=== PATIENT | male | born 1940 | race Caucasian/White ===

== ENCOUNTER 2016-04-10 13:06 | Inpatient (IN) | payer BC ==
[~2016-04-10] VITALS: Ht 170.2 cm; Wt 82.0 kg
[2016-04-10] MEDS ORDERED: NALOXONE 0.4 MG/ML AMP ONE (14:41)
[2016-04-10] MEDS ORDERED: SODIUM CHLORIDE 0.9% 1,000 ML ONE (14:51)
[2016-04-10] MEDS ORDERED: NALOXONE 2 MG/2 ML SYRINGE ONE (15:46)
[2016-04-10] MEDS ORDERED: SODIUM CHLORIDE 0.9% 1,000 ML IV SCH (16:00)
[2016-04-10] MEDS ORDERED: SALINE FLUSH 10 ML FLUSH PRN (16:00)
[2016-04-10] MEDS ORDERED: ONDANSETRON 4 MG VIAL IV PRN (16:00)
[2016-04-10] MEDS: DUONEB INH SCH ×2 (17:25→23:29)
[2016-04-10 17:29] VITALS: RESP 20
[2016-04-10 18:46] VITALS: BP_SYST 124; BP_SYST 130; RESP 18; TEMP 98
[2016-04-10 18:49] VITALS: Ht 170.2 cm; Wt 82.0 kg
[2016-04-10] MEDS: SALINE FLUSH 10 ML FLUSH SCH (20:43)
[2016-04-10] MEDS: PRAVASTATIN 20 MG TAB PO SCH (21:00)
[2016-04-10] MEDS: ATENOLOL 25 MG TAB PO SCH (21:00)
[2016-04-10 23:36] VITALS: RESP 16
[2016-04-10 23:54] VITALS: BP_SYST 86; RESP 18; TEMP 98.6
[2016-04-11] MEDS: DUONEB INH SCH ×6 (02:24→22:33)
[2016-04-11 03:30] VITALS: BP_SYST 114; RESP 20; TEMP 98.3
[2016-04-11] MEDS: SODIUM CHLORIDE 0.9% FLUSH BAG 500 ML IV SCH (05:14)
[2016-04-11 08:16] VITALS: BP_SYST 132; RESP 18; TEMP 98.5
[2016-04-11] MEDS: SALINE FLUSH 10 ML FLUSH SCH ×2 (08:16→21:15)
[2016-04-11] MEDS: ATENOLOL 25 MG TAB PO SCH ×2 (08:17→21:16)
[2016-04-11] MEDS: Furosemide 20 MG TAB PO SCH (08:17)
[2016-04-11] MEDS: ASPIRIN EC 81 MG TAB PO SCH (08:17)
[2016-04-11] MEDS: ALLOPURINOL 100 MG TAB PO SCH (08:18)
[2016-04-11 15:50] VITALS: BP_SYST 117; RESP 16; TEMP 98.4
[2016-04-11 19:00] VITALS: BP_SYST 114; BP_SYST 128; RESP 19; TEMP 97.8; TEMP 98
[2016-04-11] MEDS: TAMSULOSIN 0.4 MG CAP PO SCH (21:16)
[2016-04-11] MEDS: PRAVASTATIN 20 MG TAB PO SCH (21:16)
[2016-04-11] MEDS: ACETAMINOPHEN 325 MG TAB PO PRN (21:16)
[2016-04-11 22:45] VITALS: RESP 23
[2016-04-11 23:00] VITALS: BP_SYST 98; RESP 18; TEMP 97.4
[2016-04-12 00:22] VITALS: RESP 19
[2016-04-12] MEDS: DUONEB INH SCH ×5 (02:43→18:03)
[2016-04-12 03:55] VITALS: BP_SYST 120; RESP 18; TEMP 97.5
[2016-04-12] MEDS: SODIUM CHLORIDE 0.9% FLUSH BAG 500 ML IV SCH (05:56)
[2016-04-12 07:13] VITALS: BP_SYST 107; RESP 16; TEMP 98.2
[2016-04-12] MEDS: ATENOLOL 25 MG TAB PO SCH ×2 (10:01→21:10)
[2016-04-12] MEDS: Furosemide 20 MG TAB PO SCH (10:01)
[2016-04-12] MEDS: SALINE FLUSH 10 ML FLUSH SCH ×2 (10:01→21:09)
[2016-04-12] MEDS: ALLOPURINOL 100 MG TAB PO SCH (10:02)
[2016-04-12] MEDS: ASPIRIN EC 81 MG TAB PO SCH (10:02)
[2016-04-12 11:03] VITALS: BP_SYST 119; RESP 16; TEMP 98.2
[2016-04-12 16:13] VITALS: BP_SYST 107; RESP 16; TEMP 98.8
[2016-04-12 20:13] VITALS: BP_SYST 139; RESP 16; TEMP 98.2
[2016-04-12] MEDS: TAMSULOSIN 0.4 MG CAP PO SCH (21:09)
[2016-04-12] MEDS: PRAVASTATIN 20 MG TAB PO SCH (21:10)
[2016-04-12] MEDS: ACETAMINOPHEN 325 MG TAB PO PRN (21:17)
[2016-04-13] VITALS (7 sets, daily range): BP systolic 93–136; RESP 16–22; TEMP 98.1–98.9
[2016-04-13] MEDS: DUONEB INH SCH ×7 (02:34→22:19)
[2016-04-13] MEDS: SODIUM CHLORIDE 0.9% FLUSH BAG 500 ML IV SCH (06:05)
[2016-04-13] MEDS: SALINE FLUSH 10 ML FLUSH SCH ×2 (09:04→21:27)
[2016-04-13] MEDS: Furosemide 20 MG TAB PO SCH (09:04)
[2016-04-13] MEDS: ALLOPURINOL 100 MG TAB PO SCH (09:04)
[2016-04-13] MEDS: ATENOLOL 25 MG TAB PO SCH ×2 (09:05→21:27)
[2016-04-13] MEDS: ASPIRIN EC 81 MG TAB PO SCH (09:05)
[2016-04-13] MEDS ORDERED: MISSING DOSE XX ONE (18:00)
[2016-04-13] MEDS: LOPERAMIDE 2 MG CAPSULE PO PRN (18:42)
[2016-04-13] MEDS: TAMSULOSIN 0.4 MG CAP PO SCH (21:27)
[2016-04-13] MEDS: PRAVASTATIN 20 MG TAB PO SCH (21:27)
[2016-04-13] MEDS: ACETAMINOPHEN 325 MG TAB PO PRN (21:34)
[2016-04-14] MEDS: SODIUM CHLORIDE 0.9% FLUSH BAG 500 ML IV SCH (02:04)
[2016-04-14] MEDS: DUONEB INH SCH ×6 (02:46→22:51)
[2016-04-14 03:20] VITALS: BP_SYST 148; RESP 20; TEMP 98.2
[2016-04-14 07:35] VITALS: BP_SYST 125; RESP 20; TEMP 98.5
[2016-04-14] MEDS: SALINE FLUSH 10 ML FLUSH SCH ×2 (09:56→21:16)
[2016-04-14] MEDS: Furosemide 20 MG TAB PO SCH (09:56)
[2016-04-14] MEDS: ALLOPURINOL 100 MG TAB PO SCH (09:56)
[2016-04-14] MEDS: ASPIRIN EC 81 MG TAB PO SCH (09:57)
[2016-04-14] MEDS: ATENOLOL 25 MG TAB PO SCH ×2 (09:57→21:16)
[2016-04-14] MEDS: ACETAMINOPHEN 325 MG TAB PO PRN ×2 (09:58→19:11)
[2016-04-14 11:12] VITALS: BP_SYST 118; RESP 18; TEMP 97.8
[2016-04-14 15:33] VITALS: BP_SYST 103; RESP 20; TEMP 98.3
[2016-04-14 19:33] VITALS: BP_SYST 141; RESP 20; TEMP 97.7
[2016-04-14] MEDS: PRAVASTATIN 20 MG TAB PO SCH (21:16)
[2016-04-14] MEDS: TAMSULOSIN 0.4 MG CAP PO SCH (21:16)
[2016-04-14 23:09] VITALS: BP_SYST 114; RESP 20; TEMP 97.9
[2016-04-15] MEDS: DUONEB INH SCH ×5 (02:35→22:59)
[2016-04-15 04:27] VITALS: BP_SYST 123; RESP 20; TEMP 97.9
[2016-04-15] MEDS: SODIUM CHLORIDE 0.9% FLUSH BAG 500 ML IV SCH (06:00)
[2016-04-15 07:40] VITALS: BP_SYST 127; TEMP 97.6
[2016-04-15 07:41] VITALS: RESP 18
[2016-04-15] MEDS: Furosemide 20 MG TAB PO SCH (08:30)
[2016-04-15] MEDS: ALLOPURINOL 100 MG TAB PO SCH (08:30)
[2016-04-15] MEDS: ASPIRIN EC 81 MG TAB PO SCH (08:30)
[2016-04-15] MEDS: ATENOLOL 25 MG TAB PO SCH ×2 (08:30→20:58)
[2016-04-15] MEDS: ACETAMINOPHEN 325 MG TAB PO PRN ×3 (08:31→20:58)
[2016-04-15] MEDS: SALINE FLUSH 10 ML FLUSH SCH ×2 (08:32→20:59)
[2016-04-15 11:34] VITALS: BP_SYST 117; RESP 18; TEMP 97.8
[2016-04-15] MEDS: LOPERAMIDE 2 MG CAPSULE PO PRN (13:23)
[2016-04-15 15:13] VITALS: BP_SYST 107; RESP 18; TEMP 97.7
[2016-04-15] MEDS: TAMSULOSIN 0.4 MG CAP PO SCH (20:58)
[2016-04-15] MEDS: TEMAZEPAM 15 MG CAP PO PRN (20:58)
[2016-04-15] MEDS: PRAVASTATIN 20 MG TAB PO SCH (20:58)
[2016-04-15 23:30] VITALS: BP_SYST 136; RESP 15; TEMP 98.4
[2016-04-16] VITALS (7 sets, daily range): BP systolic 99–118; RESP 16–20; TEMP 97.1–98.3
[2016-04-16] MEDS: DUONEB INH SCH ×6 (03:00→23:00)
[2016-04-16] MEDS: ACETAMINOPHEN 325 MG TAB PO PRN ×2 (03:05→21:50)
[2016-04-16] MEDS: SODIUM CHLORIDE 0.9% FLUSH BAG 500 ML IV SCH (06:00)
[2016-04-16] MEDS: Furosemide 20 MG TAB PO SCH (09:02)
[2016-04-16] MEDS: ATENOLOL 25 MG TAB PO SCH ×2 (09:02→21:47)
[2016-04-16] MEDS: SALINE FLUSH 10 ML FLUSH SCH ×2 (09:02→21:45)
[2016-04-16] MEDS: ALLOPURINOL 100 MG TAB PO SCH (09:02)
[2016-04-16] MEDS: ASPIRIN EC 81 MG TAB PO SCH (09:02)
[2016-04-16] MEDS: TEMAZEPAM 15 MG CAP PO PRN (21:44)
[2016-04-16] MEDS: TAMSULOSIN 0.4 MG CAP PO SCH (21:44)
[2016-04-16] MEDS: PRAVASTATIN 20 MG TAB PO SCH (21:44)
[2016-04-17] MEDS: DUONEB INH SCH ×3 (02:55→10:30)
[2016-04-17 04:31] VITALS: BP_SYST 105; RESP 18; TEMP 97.8
[2016-04-17] MEDS: SODIUM CHLORIDE 0.9% FLUSH BAG 500 ML IV SCH (05:50)
[2016-04-17] MEDS: ACETAMINOPHEN 325 MG TAB PO PRN ×2 (05:55→09:51)
[2016-04-17 08:08] VITALS: BP_SYST 117; RESP 20; TEMP 97.8
[2016-04-17] MEDS: SALINE FLUSH 10 ML FLUSH SCH (09:42)
[2016-04-17] MEDS: ATENOLOL 25 MG TAB PO SCH (09:42)
[2016-04-17] MEDS: ASPIRIN EC 81 MG TAB PO SCH (09:42)
[2016-04-17] MEDS: ALLOPURINOL 100 MG TAB PO SCH (09:42)
[2016-04-17 10:58] VITALS: BP_SYST 101; RESP 20; TEMP 97.6
[2016-04-17 12:15] VITALS: BP_SYST 101; RESP 20; TEMP 97.6
== END 2016-04-17 13:25 | DRG 917 ==
LOC: ENRESERVTM → ENRESERVDT → CANRESERV → ER 13:06 → ENPENDDIS 15:56 → EMR 15:56 → PCU2 17:08 → 3NT 04-13 17:45
PROVIDERS: ADMIT Internal Medicine; ATTEND Internal Medicine
DX: T42.4X1A Poisoning by benzodiazepines, accidental (unintentional), initial encounter (principal); G92 Toxic encephalopathy; N17.9 Acute kidney failure, unspecified; M47.12 Other spondylosis with myelopathy, cervical region; E87.2 Acidosis; I13.0 Hypertensive heart and chronic kidney disease with heart failure and stage 1 through stage 4 chronic kidney disease, or unspecified chronic kidney disease; I50.32 Chronic diastolic (congestive) heart failure; T40.601A Poisoning by unspecified narcotics, accidental (unintentional), initial encounter; J44.9 Chronic obstructive pulmonary disease, unspecified; N18.3 Chronic kidney disease, stage 3 (moderate); I25.10 Atherosclerotic heart disease of native coronary artery without angina pectoris; Z95.1 Presence of aortocoronary bypass graft; E78.5 Hyperlipidemia, unspecified; G47.33 Obstructive sleep apnea (adult) (pediatric); L40.9 Psoriasis, unspecified; E86.0 Dehydration; G62.9 Polyneuropathy, unspecified; R33.9 Retention of urine, unspecified; F41.9 Anxiety disorder, unspecified; G47.00 Insomnia, unspecified; Z87.891 Personal history of nicotine dependence; Z79.82 Long term (current) use of aspirin
CPT/HCPCS: 36415; 36600; 70450; 70551; 71010; 72131; 72141; 72146; 72148; 76770; 80048; 80053; 80069; 80307; 81001; 81003; 82040; 82330; 82550; 82570; 82607; 82746; 82803; 82947; 82950; 83018; 83605; 83735; 83874; 83880; 83935; 84100; 84300; 84439; 84443; 85025; 85610; 85652; 86618; 87040; 87493; 93005; 94640; 94660; 94799; 96361; 96374; 96376; 99223; 99232; 99233; 99238